=== PATIENT | female | born 2000 ===

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

== ENCOUNTER 2018-12-25 12:42 | Outpatient (CLI) | payer MEDICAID | END 2018-12-25 12:43 | disposition home or self-care (01) | LOC: RAD 12:42 ==